=== PATIENT | male | born 1995 | race Caucasian/White ===

== ENCOUNTER 2024-05-05 13:07 | Emergency (ER) | payer MEDICAID ==
[~2024-05-05] VITALS: Ht 175.3 cm; Wt 90.3 kg
[2024-05-05 13:10] VITALS: O2SAT 100
[2024-05-05] MEDS: IBUPROFEN 600MG TABLET PO ONE (14:45)
[2024-05-05] MEDS ORDERED: ISOP30DR11 RIGHT EAR (18:17)
[2024-05-05 18:23] VITALS: BP 140/87; PULSE 59; RESP 16; TEMP 36.89184; O2SAT 100
== END 2024-05-05 18:28 | disposition home or self-care (01) ==
LOC: ER 13:07
DX: H61.21 Impacted cerumen, right ear (principal)
CPT/HCPCS: 69209; 99282